=== PATIENT | female | born 1980 | race Caucasian/White ===

== ENCOUNTER → 2021-09-29 07:19 | Outpatient (CLI) | payer OTHER, SELFPAY ==
[2021-09-29 21:23] LABS: SARS-CoV-2 RNA PCR Negative
== END ==
PROVIDERS: PCP Physician Assistant; Visit Provider Physician Assistant
DX: R05.1 Acute cough (principal); Z20.822 Contact with and (suspected) exposure to COVID-19
CPT/HCPCS: C9803; U0003; U0005

== ENCOUNTER 2025-02-22 08:29 | Outpatient (CLI) | payer OTHER, SELFPAY ==
--- NOTE | ~2025-02-22 | XR_ITS ---
Thoracic spine: Clinical Indication: Paresthesia of skin AP and lateral views were performed. No fracture is seen. There is normal alignment of the vertebrae. The intervertebral disc spaces appe ar normal. Paravertebral soft tissues appear normal. Impression: No significant abnormalities noted. Reviewed, dictated and finalized at [facility]. Impression: No significant abnormalities noted.
--- NOTE | ~2025-02-22 | XR_ITS ---
AP and lateral views of the left hip Clinical history: Pain Findings: No acute fracture or dislocation is seen. Osseous alignment is anatomic. Left hip joint is intact. Soft tissues are unremarkable. Impression: No significant abnormality is seen. Reviewed, dictated and finalized at location [facility]. Impression: No significant abnormality is seen.
--- NOTE | ~2025-02-22 | XR_ITS ---
Lumbosacral Spine: AP and lateral views Clinical History: Pain Findings: The normal lordotic curve is maintained. The vertebral bodies and posterior elements are i ntact. The intervertebral disc spaces are preserved. The sacroiliac joints are normally outlined. Impression: No significant abnormality. Reviewed, dictated and finalized at [facility]. Impression: No significant abnormality.
== END 2025-02-22 08:30 | disposition home or self-care (01) ==
PROVIDERS: PCP Physician Assistant; Visit Provider Physician Assistant
DX: M54.32 Sciatica, left side (principal); R20.2 Paresthesia of skin; M25.552 Pain in left hip
CPT/HCPCS: 72070; 72100; 73502

== ENCOUNTER 2025-03-01 11:55 | Outpatient (CLI) | payer OTHER, SELFPAY ==
--- NOTE | ~2025-03-01 | MM_ITS ---
EXAMINATION: MM screening theo BI w tito HISTORY: Screening TECHNIQUE: Craniocaudal and mediolateral oblique 3-D tomosynthesis images were obtained and synthetic 2-D images were generated. CAD analysis was submitted and interpreted. COMPARISON: No prior mammogram is available for comparison at this institution. BREAST PARENCHYMAL COMPOSITION: The breasts are extremely dense, which lowers the sensitivity of mamm ography FINDINGS: There is no evidence of suspicious mass, calcification, or architectural distortion to sugg est malignancy in either breast. IMPRESSION: 1. No mammographic evidence of malignancy. 2. Recommend routine screening mammography in one year. BI-RADS Category 1: Negative Reviewed, dictated and finalized at location B.
--- OUTSIDE RECORDS SUMMARY | 2025-03-01 12:46 | XMS_ITS | Clinical Summary ---
Author Organization [facility] Address [address] [place]: [place] [address] Care Team Providers Care Biological Sciences Professor Name Role Phone Unavailable Primary Care Provider Unavailabl e Allergies No known active allergies Medications sertraline (ZOLOFT) 100 mg tabletIndication s:Moderate episode of recurrent major depressive disorder (CMS/HCC) Take 1 Tablet (100 mg) by mouth daily. 90 Tablet 1 12/20/2017 Active norethindrn a-e estradiol-iron (LOESTRIN FE) 1 mg-20 mcg (21)/75 mg (7) tablet Take 1 Tablet by mouth daily. 28 Tablet 12 10/25/2017 Active LORazepam (ATIVAN) 0.5 mg tabletIndication s:Panic disorder without agoraphobia Take 1 Tablet (0.5 mg) by mouth every 8 hours as needed for Anxiety. 30 Tablet 1 12/20/2017 Active Active Problems Problem Noted Date Diagnosed Date Moderate episode of recurrent major depressive d isorder 06/16/2012 Panic disorder without agoraphobia 06/16/2012 Immunizations Immunization Administration Dates Next Due Influenza Seasonal Unspecified Formulation IM Influenza Vaccine Split PF ID 06/16/2012 Family History Medical History Relation Name Comments Healthy Brother Healthy Father High Cholesterol Father Hypertension Father Other Father seizures Colon Cancer Maternal Grandfather colon c ancer Heart Disease Maternal Grandmother Anxiety Mother Depression Mother Healthy Mother Hypertension Mother Other Paternal Grandfather blood c lots Cancer Paternal Grandmother uterine cancer Healthy Son Breast Cancer Neg Hx Ovarian Cancer Neg Hx Relation Name Status Comments Brother Alive Father Alive Maternal Grandfather Maternal Grandmother Mother Alive Paternal Grandfather Paternal Grandmother Alive Son Alive Social History Tobacco Use Types Packs/Day Years Used Date Smoking Tobacco: Former Cigarettes Q uit: 10/25/2013 Smokeless Tobacco: Never Alcohol Use Standard Drinks/Week Comments No 0 (1 standard drink = 0.6 oz pur e alcohol) Comments Unknown Sex and Gender Information Value Date Recorded Sex Assigned at Not on file Legal Sex Female 12:58 PM [employer] Gender Identity Not on file Sexual Orientation Not on file Last Filed Vital Signs Vital Sign Reading Time Taken Comments Blood Pressure 130/88 01/07/2018 9:04 AM CDT Pulse 99 01/07/2018 9:04 AM CDT Temperature 36.6 C (97.9 F) 12/20/2017 12:06 PM CDT Respiratory Rate 16 12/20/2017 12:06 PM CDT Oxygen Saturation - - Inhaled Oxygen Concentration - - Weight 54.9 kg (121 lb) 01/07/2018 9:04 AM CDT Height 157.5 cm (5' 2) 01/07/2018 9:04 AM CDT Body Mass Index 22.13 01/07/2018 9:04 AM CDT Plan of Treatment Health Maintenance Due Date Last Done Comments DTAP/TDAP/TD VACCINES (1 - Tdap) 1997 HEPATITIS B VACCINES (1 of 3 - 19+ 3-dose series) 1997 BREAST CANCER SCREENING 2018 PAP SMEAR 01/07/2021 01/07/2018 CERVICAL CANCER SCREENING 01/07/2023 HPV/Cotest (21-29) 01/07/2023 01/07/2018 HPV/Cotest (30-65) 01/07/2023 01/07/2018 COLORECTAL SCREENING 12/29/2023 Colorectal Cancer Screening 12/29/2023 FIT-DNA Q 3 years 12/29/2023 FIT/FOBT Q 1 year 12/29/2023 Flex Sig/CT Colonography Q 5 years 12/29/2023 INFLUENZA VACCINE (#1) 2024 7, 06/16/2012 HPV VACCINES Aged Out No longer eligi ble based on patient's age to complete this topic Procedures Procedure Name Priority Date/Time Associated Diagnosis Comments CERV/VAG CYTOPATH, THIN PREP W/RFLX HPV Routine 01/07/2018 9:09 AM CDT from Last 3 Months or Most Recently Relevant to Health Maintenance Results * CERV/VAG CYTOPATH, THIN PREP W/RFLX HPV (01/07/2018 9:09 AM CDT) CLINICAL INFORMATION SEE COMMENT 01/12/2018 2:43 PM CDT [facility] Comment:Information not prov ided LAST MENSTRUAL PERIOD [id number]/12/2018 2:43 PM CDT [facility] PREV PAP: NIL 01/12/2018 2:43 PM CDT [facility] PREV BX: SEE COMMENT 01/12/2018 2:43 PM CDT [facility] Comment:INFORMATION NOT PROV IDED SOURCE Endocervix 01/12/2018 2:43 PM CDT [facility] ADEQUACY: SEE COMMENT 01/12/2018 2:43 PM CDT [facility] Comment: Satisfactory for evaluation. Endocervical/transformation zone component present. PAP INTERP SEE COMMENT 01/12/2018 2:43 PM CDT [facility] Comment:Negative for intraep ithelial lesion or malignancy. MIXER HELPER: SEE COMMENT 2017 2:43 PM CDT [facility] Comment: KACIE CT(ASCP) CT screening location: [place] [address] [address] [place] [address] EXPLANATORY NOTE SEE COMMENT 018 2:43 PM CDT [facility] Comment: EXPLANATORY NOTE: The Pap is a screening test for cervical cancer. It is not a diagnostic test and is subject to false negative and false positive results. It is most reliable when a satisfactory sample, regularly obtained, is submitted with relevant clinical findings and history, and when the Pap result is evaluated along with historic and current clinical information. Genital SWAB OF ENDOCERVIX / Unknown Collection / Unknown 01/07/2018 9:09 AM CDT 01/11/2018 7:05 AM CDT Narrative [facility] - 01/12/2018 2:43 PM CDT Performing Organization Information: Site ID: [facility] Address: [address] [address] [place] [address] Director: Amos Burton us Gloria Braun MD PATHOLOGY/CYTOLOGY ORDERAB LES Final Result [facility] from Last 3 Months or Most Recently Relevant to Health Maintenance
--- OUTSIDE RECORDS SUMMARY | 2025-03-01 12:46 | XMS_ITS | Data Portability ---
[facility] Address [address] [place] [address] Care Team Providers Care Wire Galvanizer Name Role Phone GILLIAN CARLOS Primary Care Provider Unavailab le Assessment No assessment recorded. Plan of Treatment Reminders Order Date Submit Date Provider Last Modified By Organization Details Last Modified Time Details Appointments None recorded. Lab TSH + free T4, serum 2024 025 [facility], [address] [place] [address] [place], [address], 5 11:09:07 CBC w/ auto diff 2024 025 [facility], [address] [place] [address] [place], [address], 5 11:09:11 CMP, serum or plasma 2024 025 [facility], [address] [place] [address] [place], [address], 5 11:09:08 vitamin B12 + folate, serum or blood 2024 025 [facility], [address] [facility], [facility] [address], [place], [address], 5 11:09:09 lipid panel, serum 2024 025 [facility], [address] [facility], [facility] [place], [address], 5 11:09:06 HbA1c (hemoglobi n A1c), blood 2024 025 [facility], [address], [place], [address], 5 11:09:10 insulin, serum 2023 024 [facility], [address], [place], [address], 4 13:07:30 TSH + free T4, serum 2023 024 [facility], [address], [place], [address], 4 13:07:28 T3, free, serum or plasma 2023 024 [facility], [address], [place], [address], 4 13:07:32 thyroid peroxidase (tpo) Ab, serum 2023 024 [facility], [address], [place], [address], 4 13:07:31 CBC w/ auto diff 2023 024 [facility], [address], [place], [address], 4 13:07:31 CMP, serum or plasma 2023 024 [facility], [address], [place], [address], 4 13:07:28 vitamin B12 + folate, serum or blood 2023 024 [facility], [address], [place], [address], 4 13:07:29 HbA1c (hemoglobi n A1c), blood 2023 024 [facility], [address], [facility], [place], [address], 4 13:07:30 lipid panel, serum 2023 024 [facility], [address] [facility], [facility], [place], [address], 4 13:07:27 Referral None recorded. Procedures None recorded. Surgeries None recorded. Imaging MAMMO, screening, digital, bilateral 2024 025 [facility] (Imaging), [address] [place] [address], [address], 5 16:34:27 XR, hip, unilateral , 2 or 3 view [address] [facility], [address] [place] [address] , [address], [place], [address], 5 16:31:41 XR, lumbosacra l spine, 2 or 3 view 2024 025 [facility] (Imaging), [address] [place] [address] [address], [place], [address], 5 11:45:55 XR, thoracic spine, 2 view 2024 025 [facility], [address] [place] [address] , [address], [place], [address], 5 10:32:43 MAMMO, screening, digital, bilateral 2023 024 MARGIE Not available 4 15:07:49 Medication Orders fluoxetine 20 mg capsule 2024 025 [facility], [address] [place] [address], [address], 5 16:27:01 lorazepam 0.5 mg tablet 2024 025 MARGIE [facility], [address] [place] [address], [address], 5 16:27:50 fluoxetine 10 mg capsule 2023 024 [email or web address] [facility], [address] [place] [address], [address], 5 16:26:27 lorazepam 0.5 mg tablet 2023 024 [email or web address] [facility], [address] [place] [address], [address], 4 22:17:32 Patient TargetsNo targets recorded. Patient InstructionsNo instructions recorded. Reason for Referral None Reported. Results Created Date Observation Date Name Description Value Unit Range Abnormal Flag Note LastModifiedBy Organization Detail LastModifiedTime 01/21/20 24 01/22/2024 LIPID PANEL W/ CHOL/ HDL RATIO cholesterol, total 237 mg/dL 100-19 9 above high normal Not Available [facility] ([facility]) [address] [place], [address], 01/23/2024 13:07:27 01/21/20 24 01/22/2024 LIPID PANEL W/ CHOL/ HDL RATIO triglyceride s 160 mg/dL 0-149 above high normal Not Available [facility] ([facility]) [address] [place], [address], 01/23/2024 13:07:27 01/21/20 24 01/22/2024 LIPID PANEL W/ CHOL/ HDL RATIO HDL cholesterol 74 mg/dL >39 Not Available [facility]) [address] [place], [address], 01/23/2024 13:07:27 01/21/20 24 01/22/2024 LIPID PANEL W/ CHOL/ HDL RATIO VLDL cholesterol catherine 28 mg/dL 5-40 Not Available [facility]) [address] [place], [address], 01/23/2024 13:07:27 01/21/20 24 01/22/2024 LIPID PANEL W/ CHOL/ HDL RATIO LDL chol calc ([facility]) 135 mg/dL 0-99 above high normal Not Available [facility] ([facility]) [address] [place], [address], 01/23/2024 13:07:27 01/21/20 24 01/22/2024 LIPID PANEL W/ CHOL/ HDL RATIO T. chol/HDL ratio 3.2 ratio 0.0-4. 4 T. Chol/ HDL Ratio Men Women 1/2 Avg.R isk 3.4 3.3 Avg.R isk 5.0 4.4 2X Avg.R isk 9.6 7.1 3X Avg.R isk 23.4 11.0 Not Available [facility] ([facility]) [address] [place], [address], 01/23/2024 13:07:27 01/21/20 24 01/22/2024 TSH+F REE T4 TSH 1.800 uIU/m L 0.450- 4.500 Not Available [facility] ([facility]) [address] [place], [address], 01/23/2024 13:07:27 01/21/20 24 01/22/2024 TSH+F REE T4 T4,free(dire ct) 1.17 NG/dL 0.82-1 .77 Not Available [facility] ([facility]) [address] [place], [address], 01/23/2024 13:07:27 01/21/20 24 01/22/2024 COMP. METAB OLIC PANEL (14) glucose 86 mg/dL 70-99 Not Available [facility] ([facility]) [address] [place], [address], 01/23/2024 13:07:28 01/21/20 24 01/22/2024 COMP. METAB OLIC PANEL (14) BUN 13 mg/dL 6-24 Not Available [facility] ([facility]) [address] [facility] [place], [address], 01/23/2024 13:07:28 01/21/20 24 01/22/2024 COMP. METAB OLIC PANEL (14) creatinine 0.83 mg/dL 0.57-1 .00 Not Available [facility] ([facility]) [address] [facility], [place], [address], 01/23/2024 13:07:28 01/21/20 24 01/22/2024 COMP. METAB OLIC PANEL (14) eGFR 89 mL/mi n/1.7 3 >59 Not Available [facility] ([facility]) [address] [facility] [place], [address], 01/23/2024 13:07:28 01/21/20 24 01/22/2024 COMP. METAB OLIC PANEL (14) BUN/creatini ne ratio 16 9-23 Not Available [facility] ([facility]) [address] [facility] [place], [address], 01/23/2024 13:07:28 01/21/20 24 01/22/2024 COMP. METAB OLIC PANEL (14) sodium 139 mmol/ L 134-14 4 Not Available [facility] ([facility]) [address] [facility] [place], [address], 01/23/2024 13:07:28 01/21/20 24 01/22/2024 COMP. METAB OLIC PANEL (14) potassium 4.6 mmol/ L 3.5-5. 2 Not Available [facility] ([facility]) [address] [facility] [place], [address], 01/23/2024 13:07:28 01/21/20 24 01/22/2024 COMP. METAB OLIC PANEL (14) chloride 104 mmol/ L 96-106 Not Available [facility] ([facility]) [address] [place], [address], 01/23/2024 13:07:28 01/21/20 24 01/22/2024 COMP. METAB OLIC PANEL (14) carbon dioxide, total 20 mmol/ L 20-29 Not Available [facility] ([facility]) [address], [place], [address], 01/23/2024 13:07:28 01/21/20 24 01/22/2024 COMP. METAB OLIC PANEL (14) calcium 9.2 mg/dL 8.7-10 .2 Not Available [facility] ([facility]) [address] [facility], [place], [address], 01/23/2024 13:07:28 01/21/20 24 01/22/2024 COMP. METAB OLIC PANEL (14) protein, total 6.7 g/dL 6.0-8. 5 Not Available [facility] ([facility]) [address] [facility], [place], [address], 01/23/2024 13:07:28 01/21/20 24 01/22/2024 COMP. METAB OLIC PANEL (14) albumin 4.1 g/dL 3.9-4. 9 Not Available [facility] ([facility]) [address] [facility], [place], [address], 01/23/2024 13:07:28 01/21/20 24 01/22/2024 COMP. METAB OLIC PANEL (14) globulin, total 2.6 g/dL 1.5-4. 5 Not Available [facility] ([facility]) [address] [facility], [place], [address], 01/23/2024 13:07:28 01/21/20 24 01/22/2024 COMP. METAB OLIC PANEL (14) A/G ratio 1.6 1.2-2. 2 Not Available [facility] ([facility]) [address] [facility], [place], [address], 01/23/2024 13:07:28 01/21/20 24 01/22/2024 COMP. METAB OLIC PANEL (14) bilirubin, total 0.3 mg/dL 0.0-1. 2 Not Available [facility] ([facility]) [address] [facility], [place], [address], 01/23/2024 13:07:28 01/21/20 24 01/22/2024 COMP. METAB OLIC PANEL (14) alkaline phosphatase 52 IU/L 44-121 Not Available [facility] ([facility]) [address] [facility] [place], [address], 01/23/2024 13:07:28 01/21/20 24 01/22/2024 COMP. METAB OLIC PANEL (14) AST (SGOT) 13 IU/L 0-40 Not Available [facility] ([facility]) [address] [place], [address], 01/23/2024 13:07:28 01/21/20 24 01/22/2024 COMP. METAB OLIC PANEL (14) ALT (SGPT) 11 IU/L 0-32 Not Available [facility] ([facility]) [address] [place], [address], 01/23/2024 13:07:28 01/21/20 24 01/22/2024 VITAM IN B12 AND FOLAT E vitamin B12 502 pg/mL 232-12 45 Not Available [facility] ([facility]) [address] [place], [address], 01/23/2024 13:07:29 01/21/20 24 01/22/2024 VITAM IN B12 AND FOLAT E folate (folic acid), serum >20.0 NG/mL >3.0 A serum folat e vinod ntrat ion of less than 3.1 ng/mL is consi dered to repre sent clini catherine defic iency . Not Available [facility] ([facility]) [address] [place], [address], 01/23/2024 13:07:29 01/21/20 24 01/22/2024 HEMOG LOBIN A1C hemoglobin A1C 5.3 % 4.8-5. 6 Predi abete s: 5.7 - 6.4 Diabe jose manuel: >6.4 Glyce brittany contr ol for adult s with diabe jose manuel: <7.0 Not Available [facility] ([facility]) [address] [facility], [place], [address], 01/23/2024 13:07:29 01/21/20 24 01/23/2024 INSUL IN insulin 14.0 uIU/m L 2.6-24 .9 Not Available [facility] ([facility]) [address] [facility], [place], [address], 01/23/2024 13:07:30 01/21/20 24 01/21/2024 CBC WITH DIFFE RENTI AL/PL ATELE T WBC 5.6 x10e3 /uL 3.4-10 .8 Not Available [facility] ([facility]) [address] [facility], [place], [address], 01/23/2024 13:07:31 01/21/20 24 01/21/2024 CBC WITH DIFFE RENTI AL/PL ATELE T RBC 4.84 x10e6 /uL 3.77-5 .28 Not Available [facility] ([facility]) [address] [place], [address], 01/23/2024 13:07:31 01/21/20 24 01/21/2024 CBC WITH DIFFE RENTI AL/PL ATELE T hemoglobin 13.7 g/dL 11.1-1 5.9 Not Available [facility] ([facility]) [address] [facility], [place], [address], 01/23/2024 13:07:31 01/21/20 24 01/21/2024 CBC WITH DIFFE RENTI AL/PL ATELE T hematocrit 41.4 % 34.0-4 6.6 Not Available [facility] ([facility]) [address] [facility], [place], [address], 01/23/2024 13:07:31 01/21/20 24 01/21/2024 CBC WITH DIFFE RENTI AL/PL ATELE T MCV 86 fL 79-97 Not Available [facility] ([facility]) [address] [facility], [place], [address], 01/23/2024 13:07:31 01/21/20 24 01/21/2024 CBC WITH DIFFE RENTI AL/PL ATELE T MCH 28.3 pg 26.6-3 3.0 Not Available [facility] ([facility]) [address] [facility], [place], [address], 01/23/2024 13:07:31 01/21/20 24 01/21/2024 CBC WITH DIFFE RENTI AL/PL ATELE T MCHC 33.1 g/dL 31.5-3 5.7 Not Available [facility] ([facility]) [address] [facility], [place], [address], 01/23/2024 13:07:31 01/21/20 24 01/21/2024 CBC WITH DIFFE RENTI AL/PL ATELE T RDW 12.5 % 11.7-1 5.4 Not Available [facility] ([facility]) [address] [facility], [place], [address], 01/23/2024 13:07:31 01/21/20 24 01/21/2024 CBC WITH DIFFE RENTI AL/PL ATELE T platelets 342 x10e3 /uL 150-45 0 Not Available [facility] ([facility]) [address] [facility], [place], [address], 01/23/2024 13:07:31 01/21/20 24 01/21/2024 CBC WITH DIFFE RENTI AL/PL ATELE T neutrophils 59 % notest ab. Not Available [facility] ([facility]) [address] [facility], [place], [address], 01/23/2024 13:07:31 01/21/20 24 01/21/2024 CBC WITH DIFFE RENTI AL/PL ATELE T lymphs 30 % notest ab. Not Available [facility] ([facility]) [address] [facility], [place], [address], 01/23/2024 13:07:31 01/21/20 24 01/21/2024 CBC WITH DIFFE RENTI AL/PL ATELE T monocytes 9 % notest ab. Not Available [facility] ([facility]) [address] [facility], [place], [address], 01/23/2024 13:07:31 01/21/20 24 01/21/2024 CBC WITH DIFFE RENTI AL/PL ATELE T eos 1 % notest ab. Not Available [facility] ([facility]) [address] [facility], [place], [address], 01/23/2024 13:07:31 01/21/20 24 01/21/2024 CBC WITH DIFFE RENTI AL/PL ATELE T basos 1 % notest ab. Not Available [facility] ([facility]) [address] [facility], [place], [address], 01/23/2024 13:07:31 01/21/20 24 01/21/2024 CBC WITH DIFFE RENTI AL/PL ATELE T neutrophils (absolute) 3.2 x10e3 /uL 1.4-7. 0 Not Available [facility] ([facility]) [address] [place], [address], 01/23/2024 13:07:31 01/21/20 24 01/21/2024 CBC WITH DIFFE RENTI AL/PL ATELE T lymphs (absolute) 1.7 x10e3 /uL 0.7-3. 1 Not Available [facility] ([facility]) [address] [place], [address], 01/23/2024 13:07:31 01/21/20 24 01/21/2024 CBC WITH DIFFE RENTI AL/PL ATELE T monocytes(ab solute) 0.5 x10e3 /uL 0.1-0. 9 Not Available [facility] ([facility]) [address] [facility], [place], [address], 01/23/2024 13:07:31 01/21/20 24 01/21/2024 CBC WITH DIFFE RENTI AL/PL ATELE T eos (absolute) 0.1 x10e3 /uL 0.0-0. 4 Not Available [facility] ([facility]) [address] [facility], [place], [address], 01/23/2024 13:07:31 01/21/20 24 01/21/2024 CBC WITH DIFFE RENTI AL/PL ATELE T baso (absolute) 0.1 x10e3 /uL 0.0-0. 2 Not Available [facility] ([facility]) [address] [place], [address], 01/23/2024 13:07:31 01/21/20 24 01/21/2024 CBC WITH DIFFE RENTI AL/PL ATELE T immature granulocytes 0 % notest ab. Not Available [facility] ([facility]) [address] [facility], [place], [address], 01/23/2024 13:07:31 01/21/20 24 01/21/2024 CBC WITH DIFFE RENTI AL/PL ATELE T immature grans (abs) 0.0 x10e3 /uL 0.0-0. 1 Not Available [facility] ([facility]) [address] [place], [address], 01/23/2024 13:07:31 01/21/20 24 01/22/2024 THYRO ID PEROX IDASE (TPO) AB thyroid peroxidase (tpo) Ab <9 IU/mL 0-34 Not Available [facility] ([facility]) [address] [facility], [place], [address], 01/23/2024 13:07:31 01/21/20 24 01/22/2024 TRIIO DOTHY DIOGENES E (T3), FREE triiodothyro nine (T3), free 3.3 pg/mL 2.0-4. 4 Not Available [facility] ([facility]) [address] [facility], [place], [address], 01/23/2024 13:07:32 01/26/20 24 01/26/2024 MAMMO , scree china, digit al, bilat eral No observ ation record ed. [address], [address], 02/01/2024 11:42:24 04/07/20 24 12/09/2022 MAMMO , scree china, digit al, bilat eral No observ ation record ed. [facility] Not Available 2023 15:47:45 02/23/20 25 02/22/2025 XR, lumbo sacra l spine , 2 or 3 view No observ ation record ed. [facility] [address] [place] [address] [address], [place], [address], 02/22/2025 11:45:55 02/23/20 25 02/22/2025 XR, thora cic spine , 2 view No observ ation record ed. [facility] [address] [place] [address] [address], [place], [address], 02/22/2025 10:32:43 Result Notes None recorded. Problems Name Problem SNOMED Code Status Onset Date Resolution Date Notes Provider Name and Address Organization Details Recorded Time Hyperlipidemia 05274804 Active 2023 STORM Velazquez Attn: Anuel g,[address] [facility], [place], [address], [facility] - SI 22:19:59 Mixed anxiety and depressive disorder 950895460 Active 2023 STORM Velazquez Attn: Anuel mello,[address], [place], [address], [facility] 4 22:20:00 Overweight in adulthood with body mass index of 25 or more but less than 30 684010362 Active 2024 Ariana Crytsal MA null, [place] [facility] 5 16:01:48 Long-term drug therapy Active 2024 STORM Velazquez Attn: Anuel mello,[address], [place], [address], [facility] - [facility] 5 16:06:40 Problem Notes None recorded. Procedures Surgical History Date Name Laterality Status Provider Name and Address Organization Details Recorded Time Tonsillectomy completed Ariana Crystal [place] [facility] 01/13/2024 15:15:13 Imaging Results None recorded. Procedure Notes None recorded. Medical Equipment None Reported. Allergies No known drug allergies Medications Name Sig Start Date Stop Date Status Note LastModified by Organization Details LastModified Time lorazepam 0.5 mg tablet Take 1 tablet 3 times a day by oral route as needed. 2024 active Not Available Not Available Not Avai lable fluoxetine 10 mg capsule TAKE 1 CAPSULE DAILY (DISCONT INUE 20 MG DOSE) 02/05 completed Not Available Not Available Not Available fluoxetine 20 mg capsule Take 1 capsule every day by oral route. 2024 active Not Available Not Available Not Avai lable ezetimibe 10 mg tablet TAKE 1 TABLET DAILY AT BEDTIME 2023 active Not Available Not Available Not Avai lable Natalie 0.35 mg tablet Take 1 tablet every day by oral route. active Not Available Not Available No t Available Aurovela Fe 1.5/30 (28) 1.5 mg-30 mcg (21)/75 mg (7) tablet 02/05 completed Not Available Not Available Not Available Volnea (28) 0.15 mg-0.02 mg (21)/0.01 mg (5) tablet Take 1 tablet every day by oral route. 02/05 completed Not Available Not Available Not Available Vitals Date Recorded Body height Body mass index (BMI) Body weight Oxygen saturation Oxygen saturation in Arterial blood by Pulse oximetry Heart rate Systolic blood pressure Diastolic blood pressure Provider Name and Address Organization Details Last Updated DateTime 4 157.48 cm 29.1 kg/m2 74776.3 3 g 99 % 99 % 85 /min 122 mm[Hg] 82 mm[Hg] Ariana Crystal MA [facility] 4 14:35:50 Date Recorded Systolic blood pressure Diastolic blood pressure Provider Name and Address Organization Details Last Updated DateTime 02/05/2025 110 mm[Hg] 80 mm[Hg] STORM Velazquez Attn: Accounting,[address] [place], [address], [facility] 02/05/2025 16:29:05 Date Recorded Body weight Body mass index (BMI) Body height Oxygen saturation Oxygen saturation in Arterial blood by Pulse oximetry Heart rate Respiratory rate Systolic blood pressure Diastolic blood pressure Provider Name and Address Organization Details Last Updated DateTime 5 [address].5 9 g 28.9 kg/m2 157.48 cm 98 % 98 % 82 /min 18 /min 122 mm[Hg] 72 mm[Hg] Ariana Crystal MA [facility] 5 16:03:02 Social History Question Answer Notes LastModified by Organizat ion Details LastModified Time Tobacco Smoking Status Former Smoker Ariana Crystal MA null, [facility] 01/13/2024 14:33:30 Do You Have An Advance Directive? No Information not available 02/05/2025 Are You Blind Or Do You Have Difficulty Seeing? No Glasses Information not available 01/13/2024 What Is Your Level Of Caffeine Consumption? Moderate Information not available 01/13/2024 In The 14 Days Before Symptom Onset, Have You Had Close Contact With A Laboratory-confir med COVID-19 While That Case Was Ill? No Information not available 01/13/2024 In The 14 Days Before Symptom Onset, Have You Had Close Contact With A Person Who Is Under Investigation For COVID-19 While That Person Was Ill? No Information not available 01/13/2024 Have You Been To An Area Known To Be High Risk For COVID-19? No Information not available 01/13/2024 Are You Deaf Or Do You Have Serious Difficulty Hearing? No Information not available 01/13/2024 What Type Of Diet Are You Following? REGULAR No Red Meat Information not available 01/13/2024 Are There Any Guns Present In Your Home? No Information not available 01/13/2024 What Was The Date Of Your Most Recent Tobacco Screening? 02/05/2025 Information not available 02/05/2025 What Is Your Current Pack Years? 10packyears Information not available 01/13/2024 Do You Use Your Seat Belt Or Car Seat Routinely? Yes Information not available 01/13/2024 Do You Have Smoke And Carbon Monoxide Detectors In Your Home? Yes Information not available 01/13/2024 At What Age Did You Start Smoking Tobacco? 16 Information not available 01/13/2024 How Much Tobacco Do You Smoke? No Information not available 01/13/2024 Do You Use Sunscreen Routinely? Yes Information not available 01/13/2024 Has Tobacco Cessation Counseling Been Provided? Yes Information not available 01/13/2024 On What Date Was Tobacco Cessation Counseling Provided? 02/05/2025 Information not available 02/05/2025 How Many Years Have You Smoked Tobacco? 10 Information not available 01/13/2024 Sex: Female Functional Status Question Answer Note LastModified by Organizat ion Details LastModified Time Do you use any illicit or recreational drugs? No Information not available 01/13/2024 Do you or have you ever used any other forms of tobacco or nicotine? No Information not available 01/13/2024 What is your level of alcohol consumption? None Information not available 01/13/2024 Are you currently employed? Yes Information not available 02/05/2025 Are you able to care for yourself? Yes Information n ot available 01/13/2024 What is your exercise level? Occasional Information not available 01/13/2024 Mental Status None recorded. Family History Relationship Description Onset Age of this Age Resolved Age Notes LastModified by Organization Details LastModified Time Mother Depressive disorder [email or web address] Not available 2023 15:15:28 Mother Disorder of hip joint tcarterma Not available 2024 16:00:14 Mother Malignant neoplasm of lung tcarterma Not available 2024 16:00:27 Father Hypercholest erolemia tcarterma Not available 2023 15:15:35 Father Hypertensive disorder tcarterma Not available 2023 15:15:44 Medical History Condition Response Coronary Artery Disease N Other N Atrial Fibrillation N High Blood Pressure N Kidney or Bladder Problems N Thyroid Problems N GI Problems N Depression Y COPD N Blood Clots Y Skin Problems N Anemia N Heart Attack (PA) N Anxiety Disorder Y Diabetes N Muscle, Joint, or Bone Problems N Seizures/Epilepsy N Acid Reflux (GERD) N Cancer N Stroke N Asthma Y Allergies Y High Cholesterol Y Hepatitis N Liver Disease N Headaches N Heart Failure N Osteoporosis N Gynecological History Statement/Question Response Flow Moderate Date of LMP 01/31/2025 Menses Monthly Y Duration of Flow (days) 4 Current Control Method BCPs LMP Definite Obstetrics History GPAL:G 1 P 1 0 0 1 Type Value Full Term 1 Induced 0 Spontaneous 0 Premature 0 Living 1 Total 1 Immunizations Vaccine Type Date Status Note Provider Nam e and Address Organization Details Recorded Time COVID-19 vaccine, vector-nr, rS-Ad26, PF, 0.5 mL 1 completed Not Available [facility] 02/05/2025 15:51:34 Influenza, split virus, trivalent, preservative 1 completed Not Available [facility] 02/05/2025 15:51:34 COVID-19, mRNA, LNP-S, PF, 30 mcg/0.3 mL dose 1 completed Not Available [facility] 02/05/2025 15:51:34 Influenza, split virus, quadrivalent, PF 2 completed Not Available [facility] 02/05/2025 15:51:34 COVID-19, mRNA, LNP-S, bivalent, PF, 30 mcg/0.3 mL dose 2 completed Not Available [facility] 02/05/2025 15:51:34 Influenza, MDCK, quadrivalent, PF 3 completed Not Available [facility] 02/05/2025 15:51:34 COVID-19, mRNA, LNP-S, PF, christina-sucrose, 30 mcg/0.3 mL 3 completed Not Available [facility] 02/05/2025 15:51:34 Past Encounters Encounter ID Performer Location Encounter Start Date Encounter Closed Date Diagnosis/Indication Diagnosis SNOMED-CT Code Diagnosis ICD10 Code Diagnosis Note [id number] Toby Velez MD CRITICAL [facility] [address] [place] [address] 01/13/2024 14:16:58 01/13/2024 15:15:23 Adult health examination [id number] Z00.01 annual exam completed. Diabetes m ellitus screening [id number] Z13.1 a1c screening due Hyperlipidemia 21047601 E78.5 due for fasting lipids. on zetia 10mg daily Mixed anxi ety and depressive disorder 970395479 F41.8 Decrease to fluoxetine 10mg daily. she is interested in decreasing from 20mg . refill lorazepam 0.5mg tid PRN Weight gain 8424157 R63. 5 screening insulin and TFTs and TPO Perimenopausal state [id number] 53543 Z78.0 hx noted Long-term drug therapy 973160865 Z79.899 cmp, cbc and b12, folate labs are due Screening mammography 24 614673 Z12.31 mammogram due [id number] Toby Velez MD [facility] [address] [place] [address] 02/05/2025 15:49:38 02/05/2025 16:33:06 Mixed anxiety and depressive disorder [id number] F41.8 Decrease to fluoxetine 10mg daily. she is interested in decreasing from 20mg . refill lorazepam 0.5mg tid PRN Overweight in adulthood with body mass index of 25 or more but less than 30 [id number] E66.3 Z68.28 28.9 Adult [facility] th examination 478798770 Z00.01 annual exam completed. Hyperlipidemia 74362193 E78.5 due for fasting lipids. on zetia 10mg daily Perimenopausal state 731 [id number] 70306 Z78.0 hx noted Diabetes m ellitus screening 526102445 Z13.1 a1c screening due Long-term drug therapy 942762760 Z79.899 cmp, cbc and b12, folate labs are due Screening mammography 24 980097 Z12.31 mammogram due Sciatica 11198191 M54.32 Check plain film x-ray lumbosacra l spine Notalgia paresthetica 27 9486029 R20.2 Check x-ray of thoracic spine Pain of hip region 41104 002 M25.552 Check x-ray left hip Health Concerns Section Related Observation LastModified by Organization Detai ls LastModified Time None Recorded Concern Status LastModified by Organization Details LastModified Time None Recorded Advance Directives Directive N: Payers Encounter Date Sequence Insurance Name Policy Number Policy Kauffman Covered Member ID Kauffman Member ID Guarantor Name 01/13/2024 1 [facility] [id number] Elieser Bob [id number] Elmaabe Bob 02/05/2025 1 [facility] [id number] [id number] El[facility] Bob Notes Date Note Type Note Provider Name and Address Organization Details Recorded Time 01/13/2024 text/html Anxiety/Depressi onRe ported bypatient.Notes:stab le on fluoxetine 10mg and lorazepam 0.5mg PRN only.HyperlipidemiaR eported bypatient.Notes:stab le on zetia 10mg daily C/O weight gain c/o perimenopausal state STORM Velazquez Attn: [address]ing[address] [place], [address], [facility] 01/25/2024 22:20:23 02/05/2025 text/html Anxiety/Depressi onRe ported bypatient.Notes:stab le on fluoxetine 10mg and lorazepam 0.5mg PRN only.HyperlipidemiaR eported bypatient.Notes:stab le on zetia 10mg daily C/O weight gain c/o perimenopausal state STORM Velazquez Attn: [address] [place], [address], [facility] 02/23/2025 00:35:07 OBGyn Episode No OBEpisode recorded.
--- OUTSIDE RECORDS SUMMARY | 2025-03-01 12:46 | XMS_ITS | Clinical Summary ---
Author Organization [facility] Health Address [address] [place] [address] Care Team Providers Care Upholstery Trimmer Name Role Phone Unavailable Primary Care Provider Unavailabl e Social History Tobacco Use Types Packs/Day Years Used Date Smoking Tobacco: Never Assessed Comments Unknown Sex and Gender Information Value Date Recorded Sex Assigned at Not on file Legal Sex Female 12:51 AM PST Gender Identity Not on file Sexual Orientation Not on file Plan of Treatment Not on file
--- OUTSIDE RECORDS SUMMARY | 2025-03-01 12:46 | XMS_ITS | Encounter Summary ---
Author Organization [facility] Health Address [address] [place] [address] Care Team Providers Care Head Trimmer Name Role Phone Unavailable Primary Care Provider Unavailabl e Prior Encounters Date Type Department Care Team Description 10/16/2019 Converted CPS Chart Documents [facility] [address] [place] [address] <No scans attached> 10/16/2019 Converted 13x Documents [facility] [address] [place] [address] <No scans attached> Plan of Treatment Not on file Procedures Procedure Name Priority Date/Time Associated Diagnosis Comments PERIODIC ORAL EVALUATION - ESTABLISHED PATIENT Routine 07/27/2017 2:00 AM CDT PERIO MAINTENANCE Routine 07/27/2017 2:0 0 AM CDT ORAL HYGIENE INSTRUCTIONS Routine 2016 2:00 AM CDT BITEWINGS - FOUR RADIOGRAPHIC IMAGES Routine 07/27/2017 2:00 AM CDT ADDITIONAL X-RAY Routine 07/27/2017 2:00 AM CDT SINGLE X-RAY Routine 07/27/2017 2:00 AM CDT PERIODIC ORAL EVALUATION - ESTABLISHED PATIENT Routine 12/29/2016 2:00 AM CDT PERIO MAINTENANCE Routine 12/29/2016 2:0 0 AM CDT ORAL HYGIENE INSTRUCTIONS Routine 2016 2:00 AM CDT TOPICAL APPLICATION OF FLUORIDE VARNISH Routine 12/29/2016 2:00 AM CDT BITEWINGS - FOUR RADIOGRAPHIC IMAGES Routine 12/29/2016 2:00 AM CDT PERIODIC ORAL EVALUATION - ESTABLISHED PATIENT Routine 06/29/2016 2:00 AM CDT PERIO MAINTENANCE Routine 06/29/2016 2:0 0 AM CDT ORAL HYGIENE INSTRUCTIONS Routine 2015 2:00 AM CDT BITEWINGS - FOUR RADIOGRAPHIC IMAGES Routine 06/29/2016 2:00 AM CDT PERIO MAINTENANCE Routine 03/24/2016 2:0 0 AM CDT ORAL HYGIENE INSTRUCTIONS Routine 2015 2:00 AM CDT ORAL HYGIENE INSTRUCTIONS Routine 2015 2:00 AM CDT LR PERIODONTAL SCALING AND ROOT PLANING - ONE TO THREE TEETH PER QUADRANT Routine 12/17/2015 2:00 AM CDT UR PERIODONTAL SCALING AND ROOT PLANING - ONE TO THREE TEETH PER QUADRANT Routine 12/17/2015 2:00 AM CDT ORAL HYGIENE INSTRUCTIONS Routine 2015 2:00 AM CDT LL PERIODONTAL SCALING AND ROOT PLANING - ONE TO THREE TEETH PER QUADRANT Routine 12/16/2015 2:00 AM CDT UL PERIODONTAL SCALING AND ROOT PLANING - ONE TO THREE TEETH PER QUADRANT Routine 12/16/2015 2:00 AM CDT TOPICAL APPLICATION OF FLUORIDE VARNISH Routine 12/16/2015 2:00 AM CDT ORAL HYGIENE INSTRUCTIONS Routine 2015 2:00 AM BUTTON CLAMPER COMPREHENSIVE ORAL EVALUATION - NEW OR ESTABLISHED PATIENT Routine 11/27/2015 2:00 AM BUTTON CLAMPER INTRAORAL - COMPREHENSIVE SERIES OF RADIOGRAPHIC IMAGES Routine 11/27/2015 2:00 AM BUTTON CLAMPER INTRAORAL PHOTO Routine 11/27/2015 2:00 AM BUTTON CLAMPER INTRAORAL PHOTO Routine 11/27/2015 2:00 AM BUTTON CLAMPER INTRAORAL PHOTO Routine 11/27/2015 2:00 AM BUTTON CLAMPER INTRAORAL PHOTO Routine 11/27/2015 2:00 AM BUTTON CLAMPER 4 MOD COMPOSITE FILLING Routine 11/27/19 16 2:00 AM BUTTON CLAMPER 3 MOD COMPOSITE FILLING Routine 11/27/19 16 2:00 AM BUTTON CLAMPER 5 DO COMPOSITE FILLING Routine 6 2:00 AM BUTTON CLAMPER 3 MO COMPOSITE FILLING Routine 6 2:00 AM BUTTON CLAMPER 31 O COMPOSITE FILLING Routine 6 2:00 AM BUTTON CLAMPER 30 O COMPOSITE FILLING Routine 6 2:00 AM BUTTON CLAMPER 20 O COMPOSITE FILLING Routine 6 2:00 AM BUTTON CLAMPER 19 O COMPOSITE FILLING Routine 6 2:00 AM BUTTON CLAMPER 18 O COMPOSITE FILLING Routine 6 2:00 AM BUTTON CLAMPER 15 O COMPOSITE FILLING Routine 6 2:00 AM BUTTON CLAMPER 14 O COMPOSITE FILLING Routine 6 2:00 AM BUTTON CLAMPER 14 B COMPOSITE FILLING Routine 6 2:00 AM BUTTON CLAMPER 3 B COMPOSITE FILLING Routine 11/27/2015 2:00 AM BUTTON CLAMPER 2 O COMPOSITE FILLING Routine 11/27/2015 2:00 AM BUTTON CLAMPER Visit Diagnoses Not on file
== END 2025-03-01 11:56 | disposition home or self-care (01) ==
PROVIDERS: PCP Physician Assistant; Visit Provider Physician Assistant
DX: Z12.31 Encounter for screening mammogram for malignant neoplasm of breast (principal)
CPT/HCPCS: 77063; 77067